=== PATIENT | male | born 1975 | race Caucasian/White ===

== ENCOUNTER 2017-04-24 06:12 | Inpatient (IN) | payer BC ==
[~2017-04-24] VITALS: Ht 171.4 cm; Wt 78.5 kg
[2017-04-24] VITALS (11 sets, daily range): BP systolic 129–174; BP diastolic 72–97
[2017-04-24] MEDS ORDERED: ZOLPIDEM TARTRATE 5 MG TABLET PO PRN (06:30)
[2017-04-24] MEDS ORDERED: ACETAMINOPHEN 325 MG TABLET PO PRN (06:30)
[2017-04-24] MEDS ORDERED: MAGNESIUM HYDROXIDE 30 ML UDC PO PRN (06:30)
[2017-04-24] MEDS ORDERED: ONDANSETRON HCL/PF 4 MG/2 ML VIAL IVP PRN (06:30)
[2017-04-24] MEDS ORDERED: HYDROCODONE/APAP 5/325MG 1 EACH TABLET PO PRN (06:30)
[2017-04-24] MEDS ORDERED: MAG HYDROX/AL HYDROX/SIMETH 30 ML UDC PO PRN (06:30)
[2017-04-24] MEDS ORDERED: ASPIRIN 81 MG TAB.CHEW PO SCH (09:00)
[2017-04-24] MEDS: ATORVASTATIN 40 MG TABLET PO SCH (09:27)
[2017-04-24] MEDS: PANTOPRAZOLE 40 MG TABLET.DR PO SCH (09:27)
[2017-04-24] MEDS: ASPIRIN 81 MG TAB.CHEW PO SCH (09:27)
[2017-04-24] MEDS ORDERED: MORPHINE SULFATE INJ 4 MG/ML DISP.SYRIN IV PRN (09:30)
[2017-04-24 09:42] LABS: ALBUMIN 3.3 g/dL (3.4-5.0); BILIRUBIN,TOTAL 0.3 mg/dL (0.2-1.0); CREATININE 0.8 mg/dL (0.6-1.3); MAGNESIUM 1.8 mg/dL (1.8-2.4); PHOSPHORUS 3.4 mg/dL (2.5-4.9); POTASSIUM 3.9 mmol/L (3.5-5.1); TOTAL PROTEIN, SERUM 7.5 g/dL (6.4-8.2)
[2017-04-24 09:49] LABS: THYROID STIMULATING HORMONE 1.275 uIU/mL (0.358-3.74)
[2017-04-24] MEDS ORDERED: DEXTROSE 50%-WATER 50 ML DISP.SYRIN IV PRN (10:30)
[2017-04-24] MEDS ORDERED: LORAZEPAM INJ 2 MG/ML VIAL IV PRN (10:30)
[2017-04-24] MEDS ORDERED: METOPROLOL TARTRATE INJ 5 MG/5 ML AMPUL IVP PRN ×3 (10:30→13:50)
[2017-04-24] MEDS: IV NS 0.9% 1,000 ML IV SCH ×3 (10:48→23:50)
[2017-04-24 10:50] LABS: BASOPHILS % (AUTO) 0.6 % (0.0-2.0); EOSINOPHILS % (AUTO) 0.5 % (0.0-6.0); HEMATOCRIT 38 % (39-51); HEMOGLOBIN 13.5 g/dL (13.5-17.5); LYMPHOCYTES # (AUTO) 2.9 /CMM (0.8-4.8); LYMPHOCYTES % (AUTO) 37.1 % (20.0-44.0); MEAN CORPUSCULAR HEMOGLOBIN 32 PG (26.0-33.0); MEAN CORPUSCULAR HGB CONC 35 g/dl (31.0-36.0); MEAN CORPUSCULAR VOLUME 90 fL (80-96); MONOCYTES # (AUTO) 0.5 /CMM (0.1-1.30); MONOCYTES % (AUTO) 6.9 % (2.0-12.0); NEUTROPHILS # (AUTO) 4.3 /CMM (1.8-8.9); NEUTROPHILS % (AUTO) 54.9 % (43.0-81.0); PLATELET COUNT (AUTO) 292 /CMM (150-450); RDW COEFFICIENT OF VARIATION 12.6 (11.5-15.0); RED BLOOD CELL COUNT(AUTO) 4.29 MIL/uL (4.5-6.0); WHITE BLOOD COUNT (AUTO) 7.9 K/uL (4.3-11.0)
[2017-04-24] MEDS: THIAMINE HCL 100 MG TABLET PO SCH (11:09)
[2017-04-24] MEDS: FOLIC ACID 1 MG TABLET PO SCH (11:09)
[2017-04-24] MEDS: METOPROLOL TARTRATE 50 MG TABLET PO SCH ×3 (12:34→23:14)
[2017-04-24] MEDS: BLOOD SUGAR DIAGNOSTIC 1 EACH STRIP IN SCH ×3 (12:35→22:02)
[2017-04-24] MEDS: INSULIN REGULAR, HUMAN 100 UNIT/ML 3 ML VIAL SQ PRN ×3 (12:39→22:10)
[2017-04-24] MEDS ORDERED: METF10002 PO (12:55)
[2017-04-24] MEDS ORDERED: INSU100V10 SQ (12:55)
[2017-04-24] MEDS ORDERED: OMEP40CA37 PO (12:55)
[2017-04-24] MEDS ORDERED: OLME1TAB28 PO (12:55)
[2017-04-24] MEDS ORDERED: INSU100I4 SQ (12:55)
[2017-04-24 13:01] LABS: CREATININE 0.7 mg/dL (0.6-1.3); MAGNESIUM 1.7 mg/dL (1.8-2.4); POTASSIUM 3.7 mmol/L (3.5-5.1)
[2017-04-24] MEDS ORDERED: IV NS 0.9% 250 ML IV ONE (14:08)
[2017-04-24] MEDS ORDERED: IOHEXOL-350 100 ML VIAL IV ONE (14:08)
[2017-04-24] MEDS ORDERED: NITROGLYCERIN 0.4 MG/TAB BOTTLE ONE (14:17)
[2017-04-25] VITALS: BP 142/79
[2017-04-25 04:00] VITALS: BP 163/95
[2017-04-25] MEDS: IV NS 0.9% 1,000 ML IV SCH ×2 (04:02→13:25)
[2017-04-25 05:00] VITALS: BP 163/95
[2017-04-25] MEDS: METOPROLOL TARTRATE 50 MG TABLET PO SCH ×2 (06:15→13:27)
[2017-04-25 06:36] LABS: BASOPHILS # (AUTO) 0.1 /CMM (0.0-0.2); BASOPHILS % (AUTO) 0.7 % (0.0-2.0); CALCIUM, SERUM 8.7 mg/dL (8.5-10.1); CREATININE 0.7 mg/dL (0.6-1.3); EOSINOPHILS # (AUTO) 0.1 /CMM (0.0-0.7); EOSINOPHILS % (AUTO) 1.6 % (0.0-6.0); HEMATOCRIT 39 % (39-51); HEMOGLOBIN 13.6 g/dL (13.5-17.5); LYMPHOCYTES % (AUTO) 45.6 % (20.0-44.0); MAGNESIUM 1.8 mg/dL (1.8-2.4); MEAN CORPUSCULAR HEMOGLOBIN 31 PG (26.0-33.0); MEAN CORPUSCULAR HGB CONC 35 g/dl (31.0-36.0); MEAN CORPUSCULAR VOLUME 90 fL (80-96); MONOCYTES # (AUTO) 0.6 /CMM (0.1-1.30); MONOCYTES % (AUTO) 6.7 % (2.0-12.0); NEUTROPHILS % (AUTO) 45.4 % (43.0-81.0); PHOSPHORUS 3.5 mg/dL (2.5-4.9); PLATELET COUNT (AUTO) 275 /CMM (150-450); POTASSIUM 4.1 mmol/L (3.5-5.1); RDW COEFFICIENT OF VARIATION 12.4 (11.5-15.0); RED BLOOD CELL COUNT(AUTO) 4.32 MIL/uL (4.5-6.0); WHITE BLOOD COUNT (AUTO) 8.8 K/uL (4.3-11.0)
[2017-04-25] MEDS: BLOOD SUGAR DIAGNOSTIC 1 EACH STRIP IN SCH ×2 (07:00→12:33)
[2017-04-25 08:00] VITALS: BP 140/77
[2017-04-25] MEDS ORDERED: VALSARTAN 80 MG TABLET PO SCH (09:00)
[2017-04-25] MEDS ORDERED: REGADENOSON 0.4 MG/5 ML DISP.SYRIN IVP ONE (09:30)
[2017-04-25] MEDS ORDERED: ASPI-1169 PO (09:34)
[2017-04-25] MEDS ORDERED: ATOR40TA PO (09:34)
[2017-04-25] MEDS ORDERED: METO-357 PO (09:35)
[2017-04-25] MEDS: THIAMINE HCL 100 MG TABLET PO SCH (12:22)
[2017-04-25] MEDS: ATORVASTATIN 40 MG TABLET PO SCH (12:22)
[2017-04-25] MEDS: ASPIRIN 81 MG TAB.CHEW PO SCH (12:22)
[2017-04-25] MEDS: FOLIC ACID 1 MG TABLET PO SCH (12:23)
[2017-04-25] MEDS: PANTOPRAZOLE 40 MG TABLET.DR PO SCH (12:23)
[2017-04-25 16:00] VITALS: BP 130/90
== END 2017-04-25 16:45 | disposition home or self-care (01) | DRG 206 ==
LOC: TELE 08:08 → MED 04-25 09:26
PROVIDERS: ADMIT Nurse Practitioner Acute Care; ATTEND Nurse Practitioner Acute Care
DX: M94.0 Chondrocostal junction syndrome [Tietze] (principal); E83.42 Hypomagnesemia; E11.9 Type 2 diabetes mellitus without complications; I10 Essential (primary) hypertension; E78.5 Hyperlipidemia, unspecified; K21.9 Gastro-esophageal reflux disease without esophagitis; Z82.49 Family history of ischemic heart disease and other diseases of the circulatory system; F10.20 Alcohol dependence, uncomplicated; Y90.7 Blood alcohol level of 200-239 mg/100 ml; T51.0X1A Toxic effect of ethanol, accidental (unintentional), initial encounter; Z79.84 Long term (current) use of oral hypoglycemic drugs
CPT/HCPCS: 36415; 75574; 80048-TC; 80053-TC; 80061-TC; 82306; 82962-TC; 83735-TC; 84100-TC; 84439-TC; 84443-TC; 84484-TC; 85025-TC; 93307-TC; A9502; J1815; J2060; J2785; J3490; J7030; J7050; Q9967; Z7610